=== PATIENT | female | born 1975 | race African-American/Black ===

== ENCOUNTER 2021-11-24 04:11 | Inpatient (IN) | payer BC ==
[2021-11-20 14:04] VITALS: BMI 26.6
[2021-11-24] MEDS ORDERED: ACETAMINOPHEN 1000 MG/100 ML BAG IVPB ONE ×2 (06:20→11:49)
[2021-11-24] MEDS ORDERED: CEFAZOLIN 2 GM in DEXTROSE 5%-WATER - 100 ML IVPB ONE (06:20)
[2021-11-24] MEDS ORDERED: PHENAZOPYRIDINE HCL 100 MG TABLET (FP) PO ONE (06:20)
[2021-11-24] MEDS ORDERED: GABAPENTIN 300 MG CAPSULE PO ONE (06:20)
[2021-11-24] MEDS ORDERED: GABAPENTIN 300 MG CAPSULE ONE (06:49)
[2021-11-24] MEDS ORDERED: PHENAZOPYRIDINE HCL 100 MG TABLET (FP) ONE (06:50)
[2021-11-24] MEDS ORDERED: ceFAZolin SODIUM 1 GM VIAL ONE ×2 (06:50→17:12)
[2021-11-24] MEDS ORDERED: PROPOFOL 20 ML ONE ×6 (07:06→09:21)
[2021-11-24] MEDS ORDERED: DEXAMETHASONE SOD PHOSPHATE 4 MG/1 ML VIAL ONE (07:06)
[2021-11-24] MEDS ORDERED: ROCURONIUM BROMIDE 50 MG/5 ML SYRINGE ONE (07:06)
[2021-11-24] MEDS ORDERED: FENTANYL CITRATE/PF 50 MCG/ML VIAL ONE ×4 (07:06→10:08)
[2021-11-24] MEDS ORDERED: MIDAZOLAM HCL 2 MG/2 ML SINGLE DOSE VIAL ONE (07:06)
[2021-11-24] MEDS ORDERED: LIDOCAINE HCL 2% 100 MG/5 ML DISP.SYRIN ONE (07:06)
[2021-11-24] MEDS ORDERED: ePHEDrine SULFATE 50 MG/1 ML AMPULE ONE (07:06)
[2021-11-24] MEDS ORDERED: SUCCINYLCHOLINE CHLORIDE 200 MG/10 ML SYRINGE ONE (07:06)
[2021-11-24] MEDS ORDERED: KETOROLAC TROMETHAMINE 30 MG/1 ML VIAL ONE (07:06)
[2021-11-24] MEDS ORDERED: ceFAZolin SODIUM 1 GM VIAL IVPB ONE (08:25)
[2021-11-24] MEDS ORDERED: oxyCODONE HCL 5 MG TABLET PO PRN ×4 (10:03→10:04)
[2021-11-24] MEDS ORDERED: ONDANSETRON 4 MG/2 ML VIAL IVPUSH PRN ×2 (10:03→10:04)
[2021-11-24] MEDS ORDERED: DOCUSATE SODIUM 100 MG CAPSULE (FP) PO PRN (10:03)
[2021-11-24] MEDS ORDERED: BISACODYL 5 MG TABLET.DR (FP) PO PRN (10:03)
[2021-11-24] MEDS ORDERED: IBUPROFEN 800 MG/8 ML IJ IVPB PRN (10:04)
[2021-11-24] MEDS ORDERED: PROMETHAZINE HCL 25 MG/1 ML VIAL IVPUSH PRN (10:04)
[2021-11-24] MEDS ORDERED: ACETAMINOPHEN 325 MG TABLET (FP) PO PRN (10:04)
[2021-11-24] MEDS ORDERED: IBUPROFEN 800 MG/8 ML IJ IVPB SCH (10:15)
[2021-11-24] MEDS ORDERED: ACETAMINOPHEN INJECTION 100 ML IVPB ONE (11:47)
[2021-11-24] MEDS ORDERED: DEXTROSE 5%-WATER - 50 ML IVPB ONE (17:12)
[2021-11-24] MEDS: ACETAMINOPHEN 325 MG TABLET (FP) PO SCH ×2 (17:22→21:05)
[2021-11-24] MEDS: CEFAZOLIN 1 GM in DEXTROSE 5%-WATER - 1 GM/50 ML IVPB IVPB SCH (17:23)
[2021-11-24] MEDS: IBUPROFEN 800 MG/8 ML IJ IVPB SCH (17:57)
[2021-11-24 19:22] LABS: HEMATOCRIT 37.6 % (32.4-45.2); MCH 28.9 pg (25.7-33.7); MCHC 31.9 g/dl (32.0-36.0); MEAN CELL VOLUME 90.5 fl (80-96); MEAN PLT VOLUME 7.4 fl (7.5-11.1); PLATELET COUNT 247 10^3/uL (134-434); RBC 4.16 M/mm3 (3.60-5.2); RDW 15.1 % (11.6-15.6); WHITE BLOOD COUNT 11.8 K/mm3 (4.0-10.0)
[2021-11-24 19:28] LABS: CALCIUM 8.9 mg/dL (8.5-10.1)
[2021-11-24 19:29] LABS: BLOOD UREA NITROGEN 6.9 mg/dL (7-18)
[2021-11-24 19:32] LABS: CREATININE 0.5 mg/dL (0.55-1.3)
[2021-11-24] MEDS: SIMETHICONE 80 MG TAB.CHEW (FP) PO PRN (21:05)
[2021-11-24] MEDS: LACTATED RINGERS SOLUTION 1,000 ML IV SCH (21:30)
[2021-11-25] MEDS ORDERED: DEXTROSE 5%-WATER - 50 ML IVPB ONE (00:19)
[2021-11-25] MEDS ORDERED: ceFAZolin SODIUM 1 GM VIAL ONE (00:19)
[2021-11-25] MEDS: CEFAZOLIN 1 GM in DEXTROSE 5%-WATER - 1 GM/50 ML IVPB IVPB SCH (00:28)
[2021-11-25] MEDS: ACETAMINOPHEN 325 MG TABLET (FP) PO SCH ×2 (00:28→04:29)
[2021-11-25] MEDS: IBUPROFEN 800 MG/8 ML IJ IVPB SCH (01:40)
[2021-11-25] MEDS: SIMETHICONE 80 MG TAB.CHEW (FP) PO PRN ×3 (04:29→20:32)
[2021-11-25] MEDS: LACTATED RINGERS SOLUTION 1,000 ML IV SCH (08:08)
[2021-11-25 08:55] LABS: HEMATOCRIT 31.4 % (32.4-45.2); HEMOGLOBIN 10.2 GM/dL (10.7-15.3); MCH 29.4 pg (25.7-33.7); MCHC 32.5 g/dl (32.0-36.0); MEAN CELL VOLUME 90.4 fl (80-96); PLATELET COUNT 222 10^3/uL (134-434); RBC 3.47 M/mm3 (3.60-5.2); RDW 14.3 % (11.6-15.6); WHITE BLOOD COUNT 10.1 K/mm3 (4.0-10.0)
[2021-11-25 09:23] LABS: CALCIUM 8.2 mg/dL (8.5-10.1)
[2021-11-25 09:24] LABS: BLOOD UREA NITROGEN 5.8 mg/dL (7-18)
[2021-11-25 09:27] LABS: CREATININE 0.4 mg/dL (0.55-1.3)
[2021-11-25] MEDS: IBUPROFEN 600 MG TABLET (FP) PO SCH ×3 (09:39→21:43)
[2021-11-25] MEDS: ENOXAPARIN NA (PORCINE) 40 MG/0.4 ML DISP.SYRIN SQ SCH (09:40)
[2021-11-25] MEDS: ACETAMINOPHEN 500 MG TABLET (FP) PO SCH ×2 (12:16→20:33)
[2021-11-26] MEDS: IBUPROFEN 600 MG TABLET (FP) PO SCH ×2 (03:52→09:14)
[2021-11-26] MEDS: ACETAMINOPHEN 500 MG TABLET (FP) PO SCH (04:30)
[2021-11-26] MEDS: ENOXAPARIN NA (PORCINE) 40 MG/0.4 ML DISP.SYRIN SQ SCH (09:13)
[2021-11-26 11:02] VITALS: BP 117/73; PULSE 81; TEMP 98.3
== END 2021-11-26 11:30 | disposition home or self-care (01) | DRG 743 ==
LOC: J2C 04:11 → J3W 12:32
PROVIDERS: ADMIT Obstetrics & Gynecology; ATTEND Obstetrics & Gynecology
PROC: 0UT70ZZ Resection of Bilateral Fallopian Tubes, Open Approach (ICD-10-PCS; 2021-11-24)
PROC: 0UB00ZZ Excision of Right Ovary, Open Approach (ICD-10-PCS; 2021-11-24)
PROC: 0UT90ZZ Resection of Uterus, Open Approach (ICD-10-PCS; principal; 2021-11-24 07:30)
DX: D25.2 Subserosal leiomyoma of uterus (principal); D25.1 Intramural leiomyoma of uterus; N83.8 Other noninflammatory disorders of ovary, fallopian tube and broad ligament; N83.11 Corpus luteum cyst of right ovary
CPT/HCPCS: 36415; 80048; 81025; 85027; 86850; 86900; 86901; 88302-TC; 88305-TC; 88307-TC; 94010; 94760; C9803-CS; U0003; U0005